=== PATIENT | female | born 2000 | race Hispanic/Latino ===

== ENCOUNTER 2022-09-12 18:01 | Emergency (ER) | payer OTHER ==
--- OUTSIDE RECORDS SUMMARY | 2022-09-12 18:05 | XMS REPORT | Continuity of Care Document ---
:[address] [facility] t Address [address] [place] [place] [address] Care Team Providers Name Role Phone Pcp, Patient Does Not Have A Primary Care Physician [id number] DELORIS JOHNSON Attending Clinician Unavailable YANG NELSON Attending Clinician Unavailable JYOTI SINGH Attending Clinician Unavailable GARY PULIDO Attending Clinician Unavailable LANDY LUA Attending Clinician Unavailable RITA SHERMAN Attending Clinician Unavailable FIDELINA ODELL Attending Clinician Unavailable Fidelina Odell PA-C Attending Clinician Doctor Unassigned, [place] Attending Clinician Unavailable SHAVONNE HUERTA Attending Clinician Unavailable Shoaib Schneider Unavailable [phone] Angelika Hui Unavailable [phone] Regina Alexander Unavailable [phone] Payers Payer Name Policy Type Policy Number Effective Date Expiration Date S ourfadi [place] [id number] 2021 2021 WOMEN 00:00:00 00:00:00 [place] [id number] FORMERLY [facility] [id number] 2022 [place] STAR 00:00:00 [facility] MEDICAID STAR [id number] 2022 00:00:00 Problems Condition Condition Condition Status Onset Resolution Last Treating Co mments Source Name Details Category Date Date Treatment Clinician Date Screening Condition Active 2021-01-19 Bassem Schneider visit for 01-19 14:16:49 Shoaib Commu ni sexually 00:00: ty trans dis 00 Health Family Condition Active 2021-01-19 Jennie Dina paris history of 01-19 14:16:49 Shoaib Comm uni thyroid 00:00: ty disease 00 Health Contracept Condition Active 2021-01-19 Bassem Schneider ion 01-19 14:16:49 Shoaib Martinez counseling 00:00: ty 00 Health Annual Condition Active 2021-01-19 Jennie Dina paris physical 01-19 14:16:49 Shoaib Denny i examinatio 00:00: ty n 00 Health Nausea and Condition Active 2018-12-12 Bassem Hui vomiting 12-04 14:43:32 Angelika Co mmuni in 00:00: ty 00 Health Less than Condition Active 2018-12-12 Bassem Hui 8 weeks 4-17 14:43:32 Angelika Com johanna gestation 00:00: ty of 00 Health Encounter Condition Active 2018-11-21 Bassem Alexander for 11-21 16:37:39 Regina Martinez supervisio 00:00: ty n of 00 Health normal first , first trimester No known No known Disease Unive rs active active ity of problems problems [facility] History of Past Illness Condition Condition Condition Status Onset Resolution Last Treating Co mments Source Name Details Category Date Date Treatment Clinician Date Less than Condition Inactiv 2018-12-04 2018-12-04 Bassem Hui 8 weeks e -04 00:00:00 16:09:45 Angelika C ommuni gestation 00:00: ty of 00 Health Allergies, Adverse Reactions, Alerts Allergy Allergy Status Severity Reaction(s) Onset Inactive Treating Comm ents Source Name Type Date Date Clinician NO KNOWN Drug Active Univers ALLERGIE Class ity of S [facility] Social History Social Habit Start Date Stop Date Quantity Comments Source Exposure to 2022-06-18 2022-06-28 Not sure University of SARS-CoV-2 (event) 00:00:00 10:51:00 [facility] Tobacco use and 2022-05-30 2022-05-30 Smokeless tobacco Un iversity of exposure 00:00:00 00:00:00 non-user [facility] albumin, serum 2021-01-19 2021-01-19 4.3 g/dL [facility] 14:22:00 14:22:00 Health sexual orientation 2021-01-19 2021-01-19 heterosexual [facility] 13:16:22 13:16:22 Health PHQ2 Questionairre 2021-01-19 2021-01-19 [facility] Score 13:16:22 13:16:22 Health is there any chance 2021-01-19 2021-01-19 No [facility] that you could be 13:16:22 13:16:22 Health ? if the patient is 2021-01-19 2021-01-19 No [facility] using/has used a 13:16:22 13:16:22 Health vaping item, Current, Former, Never Used, Not asked drug use 2021-01-19 2021-01-19 Previously [facility] 13:16:22 13:16:22 Health alcohol use 2021-01-19 2021-01-19 Previously [facility] 13:16:22 13:16:22 Health social history 2021-01-19 2021-01-19 reviewed today [facility] reviewed E&M 13:16:22 13:16:22 Health social history E&M 2021-01-19 2021-01-19 No significant [place] [facility] [facility] 13:16:22 13:16:22 history. Health Have you traveled to 2018-12-12 2018-12-12 No [facility] any zika virus 13:18:04 13:18:04 Health infected areas? time of call 2018-11-29 2018-11-29 11/29/2018 1:31 PM [facility] 13:31:02 13:31:02 Health cat exposure during 2018-11-21 2018-11-21 no [facility] 14:27:05 14:27:05 Health number of sexual 2018-11-21 2018-11-21 [facility] partners in last 14:27:05 14:27:05 Health year currently in sexual 2018-11-21 2018-11-21 only one partner [facility] relationship with 14:27:05 14:27:05 at a time Health total number of 2018-11-21 2018-11-21 [facility] lifetime sexual 14:27:05 14:27:05 Health partners Sex Assigned At 2000 2000 Universit y of 00:00:00 00:00:00 [facility] Smoking Status Start Date Stop Date Source Tobacco [facility] Never [facility] tobacco [facility] Medications Ordered Filled Start Stop Current Ordering Indication Dosage Frequency Signature Comments Components Source Medication Medication Date Date Medication? Clinician (SIG) Name Name RODERICK 2021-08 Yes [id number] 1{tbl} Take 1 Univers 1 mg-20 mcg 1-09 tablet by ity of (21)/75 mg 00:00: mouth in Lak[place] as (7) tablet 00 the Medical morning. Branch LOESTRIN 2021-08 Yes [id number] 1{tbl} Take 1 Univers 1 mg-20 mcg 1-09 tablet by ity of (21)/75 mg 00:00: mouth in Lakhwinder as (7) tablet 00 the Medical morning. Branch LOESTRIN 2021-08 Yes [id number] 1{tbl} Take 1 Univers 1 mg-20 mcg 1-09 tablet by ity of (21)/75 mg 00:00: mouth in Lakhw[place] as (7) tablet 00 the Medical morning. Branch TAKE 1 2021-08 No CAPSULE BY 0-31 MOUTH THREE 00:00: TIMES DAILY 00 TAKE 1 2021-08 No TABLET BY 0-28 MOUTH EVERY 00:00: 6 HOURS 00 NEEDED FOR MODERATE PAIN azithromyci 2021-08- No [id number] 1000mg Take 2 Univers n 500 mg 0-13 10-15 tablets by ity of tablet 00:00: 04:59 mouth in [place] 00 :00 the Medical morning Branch for 1 day. No known 2021-08 No No known Unive rs medications 0-11 medication it y of 16:17: s [address] No known 2021-08 No No known Unive rs medications 0-11 medication it y of 16:17: s [address] SPRINTEC 28 Yes Shoaib 1 1xD 1 tablet L egacy (NORGESTIMA -02 Jennie by mouth Co mmuni TE-ETH 00:00: daily ty ESTRADIOL) 00 Health 0.25-35 MG-MCG TABS (PROMETHAZI 2020- No 1 6xD 1 tab by L egacy NE HCL) 25 4-17 06-02 mouth Communi MG TABS 00:00: 00:00 every 4-6 ty 00 :00 hrs as Health needed for nausea SELECT-OB+D 2020- No 1 tablet L egacy CHAVARRIA 4-04 -02 and 1 gel Communi ( 00:00: 00:00 capsule by t y VIT-FEPOLY- 00 :00 mouth Health FA-DHA) daily 29-1 & 250 MG Immunizations Ordered Immunization Filled Immunization Date Status Commen ts Source Name Name Klever 2022-06-29 Completed Meningococcal 00:00:00 (groups a,c,y,w) Pneumococcal 2022-06-29 Completed conjugate P 00:00:00 Meningococcal B, OMV 2021-12-22 Completed Univ ersity of 00:00:00 [facility] Meningococcal B, OMV 2021-12-22 Completed Univ ersity of 00:00:00 [facility] Meningococcal B, OMV 2021-12-22 Completed Univ ersity of 00:00:00 [facility] Meningococcal B, OMV 2021-12-22 Completed Univ ersity of 00:00:00 [facility] Meningococcal B, OMV 2021-12-22 Completed Univ ersity of 00:00:00 [facility] Meningococcal B, OMV 2021-12-22 Completed Univ ersity of 00:00:00 [facility] influenza, live, 2014-10-05 Completed intrana 00:00:00 HPV, quadrivalent 2014-10-05 Completed 00:00:00 Influenza, seasonal, 2011-09-11 Completed inj 00:00:00 HPV, quadrivalent 2011-09-11 Completed 00:00:00 meningococcal MCV4P 2011-09-11 Completed 00:00:00 Tdap 2011-09-11 Completed 00:00:00 varicella 2010-01-18 Completed 00:00:00 IPV 2010-01-18 Completed 00:00:00 Hep A, unspecified 2006-01-01 Completed formu 00:00:00 pneumococcal 2005-01-17 Completed conjugate P 00:00:00 MMR 2005-01-17 Completed 00:00:00 DTaP, unspecified 2005-01-17 Completed formul 00:00:00 Hep A, unspecified 2005-01-17 Completed formu 00:00:00 varicella 2002-02-04 Completed 00:00:00 Hib (PRP-T) 2002-02-04 Completed 00:00:00 DTaP, unspecified 2002-02-04 Completed formul 00:00:00 MMR 2001-09-23 Completed 00:00:00 IPV 2001-09-23 Completed 00:00:00 Hib (PRP-T) 2001-07-30 Completed 00:00:00 DTaP, unspecified 2001-07-30 Completed formul 00:00:00 IPV 2001-05-08 Completed 00:00:00 Hib (PRP-T) 2001-05-08 Completed 00:00:00 Hep B, adolescent or 2001-05-08 Completed ped 00:00:00 DTaP, unspecified 2001-05-08 Completed formul 00:00:00 Hep B, adolescent or 2000 Completed ped 00:00:00 IPV 2000 Completed 00:00:00 Hib (PRP-T) 2000 Completed 00:00:00 DTaP, unspecified 2000 Completed formul 00:00:00 Hep B, unspecified 2000 Completed formu 00:00:00 Hep B, adolescent or 2000 Completed ped 00:00:00 Vital Signs Vital Name Observation Time Observation Value Comments Source Systolic blood 2022-06-28 17:07:00 111 mm[Hg] Univer sity of pressure [facility] Diastolic blood 2022-06-28 17:07:00 74 mm[Hg] Unive rsity of pressure [facility] Heart rate 2022-06-28 17:07:00 74 /min [facility] Body temperature 2022-06-28 17:07:00 36.72 Judy [facility] Respiratory rate 2022-06-28 17:07:00 18 /min [facility] Body height 2022-06-28 17:07:00 157.5 cm [facility] Body weight 2022-06-28 17:07:00 53.071 kg [facility] BMI 2022-06-28 17:07:00 21.40 kg/m2 Universi ty [facility] Systolic blood 2022-05-30 18:50:00 109 mm[Hg] Univer sity of pressure [facility] Diastolic blood 2022-05-30 18:50:00 74 mm[Hg] Unive rsity of pressure [facility] Heart rate 2022-05-30 18:50:00 84 /min Universi ty [facility] Body temperature 2022-05-30 18:50:00 36.67 Judy Univ ersity of [facility] Respiratory rate 2022-05-30 18:50:00 18 /min Univ ersity of [facility] Body height 2022-05-30 18:50:00 157.5 cm Universi ty [facility] Body weight 2022-05-30 18:50:00 52.164 kg Universi ty [facility] BMI 2022-05-30 18:50:00 21.03 kg/m2 Universi ty [facility] BP Systolic 2022-06-29 11:04:00 118 mm[Hg] BP Diastolic 2022-06-29 11:04:00 81 mm[Hg] Weight Measured 2022-06-29 11:04:00 117.40 pounds Height Measured 2022-06-29 11:04:00 64.00 inches Body Temperature 2022-06-29 11:04:00 97.00 degrees Heart Rate 2022-06-29 11:04:00 71.00 /min Respiratory Rate 2022-06-29 11:04:00 18.00 /min BP Systolic 2022-06-22 10:05:00 125 mm[Hg] BP Diastolic 2022-06-22 10:05:00 83 mm[Hg] Weight Measured 2022-06-22 10:05:00 115.40 pounds Height Measured 2022-06-22 10:05:00 64.00 inches Body Temperature 2022-06-22 10:05:00 98.20 degrees Heart Rate 2022-06-22 10:05:00 80.00 /min Respiratory Rate 2022-06-22 10:05:00 18.00 /min height in 2021-01-19 13:16:22 157.48 cm [facility] centimeters E& Health weight E&M 2021-01-19 13:16:22 112.80 [lb_av] [facility] weight in kilograms 2021-01-19 13:16:22 51.27 kg L [facility] E& Health temperature E&M 2021-01-19 13:16:22 98.1 [degF] [facility] Health pulse rate 2021-01-19 13:16:22 97 /min [facility] oxygen saturation, 2021-01-19 13:16:22 98 /min [facility] oximetry Health blood pressure, 2021-01-19 13:16:22 68 mm[Hg] [facility] diastolic [facility] blood pressure, 2021-01-19 13:16:22 106 mm[Hg] [facility] systolic Health temperature site 2021-01-19 13:16:22 oral [facility]ega [facility] Health blood pressure, 2018-12-12 13:18:04 73 mm[Hg] [facility] diastolic Health blood pressure, 2018-12-12 13:18:04 125 mm[Hg] [facility] systolic Health pulse rate 2018-12-12 13:18:04 89 /min [facility] temperature E&M 2018-12-12 13:18:04 98.0 [degF] [facility] 2018-12-12 13:18:04 107.0 [lb_av] [facility] temperature site 2018-12-12 13:18:04 oral [facility]ega [facility] Health height E&M 2018-12-12 13:18:04 62.1 [in_i] [facility], 2018-12-04 15:52:20 70 mm[Hg] [facility] diastolic Health blood pressure, 2018-12-04 15:52:20 106 mm[Hg] [facility] systolic Health pulse rate 2018-12-04 15:52:20 72 /min [facility] 2018-12-04 15:52:20 oral Lega [facility] Health temperature E&M 2018-12-04 15:52:20 97.9 [degF] Legac y [facility] Health weight E&M 2018-12-04 15:52:20 107.2 [lb_av] [facility] Health height E&M 2018-12-04 15:52:20 62.1 [in_i] [facility] temperature [facility] 2018-11-21 14:27:05 oral [facility] blood pressure, 2018-11-21 14:27:05 69 mm[Hg] [facility] diastolic Health blood pressure, 2018-11-21 14:27:05 106 mm[Hg] [facility] pulse rate 2018-11-21 14:27:05 97 /min [facility] temperature E&M 2018-11-21 14:27:05 98.1 [degF] [facility] 2018-11-21 14:27:05 62.1 [in_i] [facility] weight E&M 2018-11-21 14:27:05 108.8 [lb_av] [facility] Procedures Procedure Date / Time Performing Clinician Source Performed CONSENT FOR 2022-06-28 06:01:00 Doctor Unassigned, No [facility] CONTRACEPTION [facility] POCT TEST 2022-06-28 00:00:00 Fidelina Odell [facility] NOTICE OF PRIVACY 2022-05-30 18:23:05 Doctor Unassigned, No [facility] PRACTICES Name [facility] CONSENT TO CONTACT FOR 2022-05-30 18:22:40 Doctor Unassigned, No [facility] VOLUNTARY RESEARCH Name [facility] CONSENT/REFUSAL FOR 2022-05-30 18:22:14 Doctor Unassigned, No [facility] DIAGNOSIS AND TREATMENT [facility] ASSIGNMENT OF BENEFITS 2022-05-30 18:21:40 Doctor Unassigned, No [facility] POCT TEST 2022-05-30 00:00:00 Fidelina Odell [facility] Most recent diastolic 2021-01-19 14:11:41 Shoaib Schneider [facility] blood pressure less than Health 80 mm Hg (HTN, CKD, CAD) (DM) Most recent systolic 2021-01-19 14:11:41 Jennie, [facility] blood pressure less than Health 130 mm Hg (DM), (HTN, CKD, CAD) Urine - In 2021-01-19 13:32:15 [facility]ound, transvaginal 2018-12-12 14:43:38 Sallie Coronado [facility] Venipuncture 2018-11-21 16:26:27 Regina Alexander [facility] Plan of Care Planned Activity Planned Date Details Comments Source Goal Plan of Care Note [code = 88106-9] Goal Plan of Care Note [code = 25822-6] Goal Plan of Care Note [code = 53642-9] Goal Plan of Care Note [code = 55914-8] Goal Plan of Care Note [code = 40365-8] Goal Plan of Care Note [code = 18419-3] Goal Plan of Care Note [code = 64400-4] Goal Plan of Care Note [code = 81212-4] Encounters Start End Encounter Admission Attending Care Care Encounter Source Date/Time Date/Time Type Type Clinicians Facility Department ID 2022-08-01 Outpatient [facility] [id number] [place] 09:14:14 [id number] [facility] 2022-06-21 Outpatient [facility] [id number] [place] 11:25:34 [id number] Health 2022-06-05 Outpatient [facility] [id number] [place] 10:19:29 [id number] [facility] 2022-06-01 Outpatient [facility] [id number] [place] 06:09:16 [id number] 2022-04-27 Outpatient [facility] [id number] [place] 08:19:58 [id number] [facility] 2022-04-26 Outpatient [facility] [id number] [place] 15:52:50 [id number] [facility] 2022-03-30 Outpatient [facility] [id number] [place] 10:18:46 [id number] Health 2022-03-28 Outpatient [facility] [id number] [place] 08:47:50 [id number] [facility] 2022-03-15 Outpatient [facility] [id number] [place] 02:55:52 [id number] [facility] 2022-03-14 Outpatient [facility] [id number] [place] 08:42:13 [id number] [facility] 2022-03-11 Outpatient [facility] [id number] [place] 02:52:11 [id number] [facility] 2022-02-28 Outpatient ACHOR, [facility] [id number] [place] 01:04:08 DELORIS [id number] [facility] 2022-02-27 Outpatient OMAR, [facility] [id number] [place] 01:03:46 YANG [id number] [facility] 2022-02-10 Outpatient [facility] [id number] [place] 01:06:01 [id number] [facility] 2022-02-06 Outpatient SAMANTHA, [facility] [id number] [place] 11:19:04 JYOTI [id number] [facility] 2022-02-03 Outpatient [facility] [id number] [place] 09:38:24 [id number] [facility] 2022-02-02 Outpatient [facility] [id number] [place] 06:59:21 [id number] [facility] 2022-01-30 Outpatient [facility] [id number] [place] 14:34:07 [id number] [facility] 2022-01-26 Outpatient LADOR, RAN [facility] [id number] [place] 03:12:09 [id number] [facility] 2022-01-25 Outpatient [facility] [id number] [place] 08:22:20 [id number] [facility] 2022-01-24 Outpatient LADOR, RAN [facility] [id number] [place] 07:33:07 [id number] [facility] 2022-01-23 Outpatient [facility] [id number] [place] 17:42:57 [id number] [facility] 2022-01-20 Outpatient LADOR, RAN [facility] [id number] [place] 03:16:32 [id number] [facility] 2022-01-19 Outpatient LADOR, RAN [facility] [id number] [place] 14:07:11 [id number] [facility] 2022-01-18 Outpatient [facility] [id number] [place] 14:03:18 [id number] [facility] 2022-01-17 Outpatient LUA, [facility] [id number] [place] 11:54:35 LANDY [id number] [facility] 2022-01-13 Outpatient SAMANTHA, [facility] [id number] [place] 03:14:06 JYOTI [id number] [facility] 2022-01-06 Outpatient [facility] [id number] [place] 01:06:06 [id number] [facility] 2022-01-05 Outpatient AKUTAN, [facility] [id number] [place] 10:09:20 RITA [id number] [facility] 2022-01-02 Outpatient SINGH, [facility] [id number] [place] 11:12:16 JYOTI [id number] [facility] 2021-12-29 Outpatient [facility] [id number] [place] 09:19:54 [id number] [facility] 2021-12-27 Outpatient [facility] [id number] [place] 15:41:37 [id number] [facility] 2021-12-26 Outpatient AKUTAN, [facility] [id number] [place] 11:57:16 RITA [id number] [facility] 2021-12-23 Outpatient AKUTAN, [facility] [id number] [place] 09:08:31 RITA [id number] [facility] 2021-12-21 Outpatient [facility] [id number] [place] 08:27:14 [id number] [facility] 2021-12-14 Outpatient [facility] [id number] [place] 07:12:[id number] [place] [address] 2021-06-05 Outpatient [facility] [id number] Legacy 12:07:22 [id number] [facility] 2021-06-05 Outpatient [facility] [id number] Legacy 11:59:25 [id number] [facility] 2021-06-05 Outpatient [facility] [id number] Legacy 10:39:45 [id number] [facility] 2022-06-29 2022-06-29 Outpatient [facility] [id number] Daryl 11:00:36 11:00:36 [id number] F Slim 2022-06-29 2022-06-29 Outpatient [id number] [id number] 00:00:00 00:00:00 Visit [id number] 2022-06-28 2022-06-28 Outpatient Anamaria ODELL [facility] [id number] Univers 10:45:00 11:20:54 FIDELINA ity [facility] 2022-06-28 2022-06-28 [facility] [id number] Univers 10:45:00 11:20:54 Visit Fidelina METCALF [id number] i ty [id number] [id number] Mn dical NAL [address] [place] [address] 2022-06-28 2022-06-28 Orders Doctor MICKIE [id number] Univers 00:00:00 00:00:00 Only Unassigned, CHAD [id number] ity of [place] [facility] [id number] Lakhwinder as [phone] [address] 2022-06-01 2022-06-01 [facility] [id number] Univers 00:00:00 00:00:00 Management Fidelina CRYSTALJEANETTE [id number] it[place] [id number] Mn dical NAL [address] [place] [address] 2022-05-30 2022-05-30 [facility] [id number] Univers 13:30:00 14:33:37 FIDELINA phelps [facility] 2022-05-30 2022-05-30 Office [facility] [id number] Univers 13:30:00 14:33:37 Visit Fidelina ROJASJEANETTE [id number] i ty [id number] [id number] Mn dical NAL [address] [place] [address] 2022-05-30 2022-05-30 Orders Doctor MICKIE [id number] Univers 00:00:00 00:00:00 Only Unassigned, CHAD [id number] ity of [place] [facility] [id number] Lakhwinder as [id number] [address] 2022-04-28 2022-04-28 Outpatient GARY PULIDO [facility] [id number] [place] 09:00:00 09:00:00 Health 2022-04-03 2022-04-03 Outpatient SINGH, [facility] [id number] [place] 11:45:00 11:45:00 JYOTI Health 2022-04-03 2022-04-03 Outpatient [facility] [id number] [place] 11:30:00 11:30:00 Health 2022-01-27 2022-01-27 Outpatient [facility] [id number] [place] 09:00:00 09:00:00 Health 2021-12-19 2021-12-19 Outpatient LUA, [facility] [id number] [place] 12:00:00 12:00:00 LANDY Health 2021-12-15 2021-12-15 Outpatient PUZIO, [facility] [id number] [place] 07:30:00 07:30:00 SHAVONNE Healt h Results Test Description Test Time Test Comments Results Result Comments Source RPR 2022-07-04 10:10:45 Test Item Value Reference Range Interpretation Comme nts RPR RESULT (test TEST NOT PERFORMED NON-REACTIVE Unabl e to perform testing, code = 3501) specimen not re ceived.Charges adjusted as merle licable. RPR TITER (test TEST NOT PERFORMED NOT INDIC. code = 3500) TITER HIV 1/2 4TH GEN, RFLX [id number] 10:10:18 Test Item Value Reference Range Interpretation Comments HIV 1/2 4TH GEN, TEST NOT PERFORMED NON-REACTIVE Unabl e to perform RFLX CONF (test testing, [employer] code = 3514) not received.Charge s adjusted as applicable. VAGINAL PATHOGENS DNA [id number] 08:35:38 Test Item Value Reference Range Interpretation Comments KIRSTIE SPECIES TEST NOT PERFORMED NEGATIVE UNABL E TO (test code = 66610) PERFORM TESTING DUE TO RECEIPT OF IMPROPER SPECIMEN. CHARG ES DELETED. G. VAGINALIS (test TEST NOT PERFORMED NEGATIVE UN ABLE TO code = ) PERFORM TESTIN G DUE TO RECEIPT OF IMPROPER SPECIMEN. CHARG ES DELETED. T. VAGINALIS (test TEST NOT PERFORMED NEGATIVE U NABLE TO code = ) PERFORM TESTIN G DUE TO RECEIPT OF IMPROPER SPECIMEN. CHARG ES DELETED. CT/NG, NAAT, [id number] 22:42:50 Test Item Value Reference Range Interpretation Comments GONORRHEA, NAAT NEGATIVE NEGATIVE Note: Testi ng is performed (test code = with Teodoro YELENA S 6800/8800 21691) method using re al-time polymerase kita n reaction (PCR) method. CHLAMYDIA, NAAT NEGATIVE NEGATIVE Note: Testi ng is performed (test code = with Teodoro YELENA S 6800/8800 19889) method using re al-time polymerase kita n reaction (PCR) method. U NLESS OTHERWISE INDIC ATED, ALL TESTING PERFORM [facility] [place]. [address] [place] [address] LABORATORY DIRE CTOR: Chriss STOLL. CLIA NUMBER [id number] CAP ACCREDITATION N O. [id number] POCT [id number] 17:05:00 Test Item Value Reference Range Interpretation Comments POCT PREG (test code = 1605) Negative On board controls acceptable with C Yes Line (test code = 3574) POCT PREG LOT # (test code = 3575) POCT PREG TEST DATE (test code = 3576) [id number] 17:05:00 Test Item Value Reference Range Interpretation Comments POCT PREG (test code = 1605) Negative On board controls acceptable with C Yes Line (test code = 3574) POCT PREG LOT # (test code = 3575) POCT PREG TEST DATE (test code = 3576) [facility] [id number] 19:33:00 Test Item Value Reference Range Interpretation Comments POCT PREG (test code = 1605) Negative On board controls acceptable with C Yes Line (test code = 3574) POCT PREG LOT # (test code = 3575) POCT PREG TEST DATE (test code = 3576) [facility] [id number] 19:33:00 Test Item Value Reference Range Interpretation Comments POCT PREG (test code = 1605) Negative On board controls acceptable with C Yes Line (test code = 3574) POCT PREG LOT # (test code = 3575) POCT PREG TEST DATE (test code = 3576) [facility] 2022-05-30 18:22:40 Test Item Value Reference Range Interpretation Comments Consent To Contact For Voluntary Yes Research (test code = 4947) [facility] CenterNeisseria gonorrhoeae DNA [id number] 14:27:00 Test Item Value Reference Range Interpretation Comments Neisseria gonorrhoeae DNA probe Negative Negative (test code = 53295-0) [facility] [id number] 14:27:00 Test Item Value Reference Range Interpretation Comments chlamydia DNA probe (test code = Negative Negative 48551-1) [facility]althyroxine, serum, [id number] 14:22:00 Test Item Value Reference Range Interpretation Comments thyroxine, serum, free (test code 1.30 ng/dL 0.82-1.77 = 3024-7) [facility] Hospitalthyroid stimulating hormone, [id number] 14:22:00 Test Item Value Reference Range Interpretation Comments thyroid stimulating hormone, 0.323 u[IU]/mL 0.450-4.500 L serum (test code = 3016-3) [facility]HIV-CMIA (Chemiluminescent Microparticle Immuno Assay) 2021-01-19 14:22:00 Test Item Value Reference Range Interpretation Comments HIV-CMIA (Chemiluminescent Non Reactive Non Reactive Microparticle Immuno Assay) (test code = 808439) [facility]hem[facility] A1C, blood, as % of total [id number] 14:22:00 Test Item Value Reference Range Interpretation Comments hemoglobin A1C, blood, as % of total 5.1 % 4.8-5.6 hemoglobin (test code = 4548-4) [facility] HospitalLDL cholesterol, [id number] 14:22:00 Test Item Value Reference Range Interpretation Comments LDL cholesterol, serum (test code = 60 mg/dL 0-99 2088-1) [facility]very low density [id number] 14:22:00 Test Item Value Reference Range Interpretation Comments very low density lipoproteins (test 13 mg/dL 5-40 code = 2090-7) [facility] HospitalHDL cholesterol, [id number] 14:22:00 Test Item Value Reference Range Interpretation Comments HDL cholesterol, serum (test code = 66 mg/dL >39 5-9) [facility]triglyceride, serum, [id number] 14:22:00 Test Item Value Reference Range Interpretation Comments triglyceride, serum, fasting (test 60 mg/dL 0-149 code = 2571-8) [facility]cholesterol, [id number] 14:22:00 Test Item Value Reference Range Interpretation Comments cholesterol, serum (test code = 139 mg/dL 693-890 0845-3) [facility] Hospitalalanine aminotransferase (SGPT), [id number] 14:22:00 Test Item Value Reference Range Interpretation Comments alanine aminotransferase (SGPT), serum 23 1/L 0-32 (test code = 1742-6) [facility] Hospitalaspartate aminotransferase (SGOT), [id number] 14:22:00 Test Item Value Reference Range Interpretation Comments aspartate aminotransferase (SGOT), 22 1/L 0-40 serum (test code = 1920-8) [facility] Hospitalalkaline phosphatase, [id number] 14:22:00 Test Item Value Reference Range Interpretation Comments alkaline phosphatase, serum (test code 67 1/L 45-106 = 1783-0) [facility]bilirubin, serum, [id number] 14:22:00 Test Item Value Reference Range Interpretation Comments bilirubin, serum, total (test code 0.3 mg/dL 0.0-1.2 = 1975-2) [facility]albumin/globulin ratio, [id number] 14:22:00 Test Item Value Reference Range Interpretation Comments albumin/globulin ratio, 1.7 (unknown unit) 1.2-2.2 serum (test code = 1759-0) [facility] Healthglobulin, [id number] 14:22:00 Test Item Value Reference Range Interpretation Comments globulin, serum (test code 2.6 (unknown unit) 1.5-4.5 = 2336-6) [facility]albumin, [id number] 14:22:00 Test Item Value Reference Range Interpretation Comments albumin, serum (test code = 1751-7) 4.3 g/dL 3.9-5.0 [facility]protein, total, [id number] 14:22:00 Test Item Value Reference Range Interpretation Comments protein, total, serum (test code = 6.9 g/dL 6.0-8.5 2885-2) [facility] Healthcalcium, [id number] 14:22:00 Test Item Value Reference Range Interpretation Comments calcium, serum (test code = 1999-8) 9.2 mg/dL 8.7-10.2 [facility]carbon dioxide, venous [id number] 14:22:00 Test Item Value Reference Range Interpretation Comments carbon dioxide, venous blood (test 21 mmol/L 20-29 code = 2027-1) [facility] Healthchloride, [id number] 14:22:00 Test Item Value Reference Range Interpretation Comments chloride, serum (test code = 104 mmol/L 96-106 2075-0) [facility]potassium, [id number] 14:22:00 Test Item Value Reference Range Interpretation Comments potassium, serum (test code = 4.5 mmol/L 3.5-5.2 2823-3) [facility] Hospitalsodium, [id number] 14:22:00 Test Item Value Reference Range Interpretation Comments sodium, serum (test code = 2951-2) 141 mmol/L 134-144 [facility] Hospitalurea nitrogen/creatinine ratio, [id number] 14:22:00 Test Item Value Reference Range Interpretation Comments urea nitrogen/creatinine 11 (unknown unit) 9-23 ratio, serum (test code = 3097-3) [facility] HealtheGFR if [id number] 14:22:00 Test Item Value Reference Range Interpretation Comments eGFR if 114 mL/min/{1.73 m2} >59 (test code = 03977-2) [facility] HospitalEstimated Glomerular Filtration Rate (calc)2021-01-19 14:22:00 Test Item Value Reference Range Interpretation Comments Estimated Glomerular 99 mL/min/{1.73 m2} >59 Filtration Rate (calc) (test code = 54494-5) [facility] Hospitalcreatinine, [id number] 14:22:00 Test Item Value Reference Range Interpretation Comments creatinine, serum (test code = 0.85 mg/dL 0.57-1.00 2160-0) [facility] Hospitalurea nitrogen, [id number] 14:22:00 Test Item Value Reference Range Interpretation Comments urea nitrogen, blood (test code = 9 mg/dL 6-20 3094-0) [facility] Hospitalblood glucose, [id number] 14:22:00 Test Item Value Reference Range Interpretation Comments blood glucose, random (test code = 65 mg/dL 65-99 2339-0) [facility] Hospitalimmature granulocytes, percentage of total cells, blood 2021-01-19 14:22:00 Test Item Value Reference Range Interpretation Comments immature granulocytes, percentage of 0 % total cells, blood (test code = 36047-4) [facility] Healthbasophil count, [id number] 14:22:00 Test Item Value Reference Range Interpretation Comments basophil count, absolute (test 0.0 x10E3/uL 0.0-0.2 code = 96398-4) [facility] HealthEosinophil Absolute [id number] 14:22:00 Test Item Value Reference Range Interpretation Comments Eosinophil Absolute Count (test 0.1 X10E3/UL 0.0-0.4 code = 77781-6) [facility]monocyte count, blood, [id number] 14:22:00 Test Item Value Reference Range Interpretation Comments monocyte count, blood, automated 0.7 X10E3/UL 0.1-0.9 (test code = 742-7) [facility] Hospitallymphocyte count, blood, [id number] 14:22:00 Test Item Value Reference Range Interpretation Comments lymphocyte count, blood, 2.3 X10E3/UL 0.7-3.1 automated (test code = 731-0) [facility] HospitalAbsolute [id number] 14:22:00 Test Item Value Reference Range Interpretation Comments Absolute Neutrophils (test code 6.4 X10E3/UL 1.4-7.0 = 87897-9) [facility] Hospitalbasophils as percent of blood [id number] 14:22:00 Test Item Value Reference Range Interpretation Comments basophils as percent of blood 0 % leukocytes (test code = 707-0) [facility] Healtheosinophils as percent of blood [id number] 14:22:00 Test Item Value Reference Range Interpretation Comments eosinophils as percent of blood 1 % leukocytes (test code = 713-8) [facility] Healthmonocytes as percent of blood mvjzvsyvhd9842-31-46 14:22:00 Test Item Value Reference Range Interpretation Comments monocytes as percent of blood 7 % leukocytes (test code = 5905-5) [facility]allymphocytes as percent of blood [id number] 14:22:00 Test Item Value Reference Range Interpretation Comments lymphocytes as percent of blood 24 % leukocytes (test code = 736-9) [facility] Hospitalneutrophils as percent of blood [id number] 14:22:00 Test Item Value Reference Range Interpretation Comments neutrophils as percent of blood 68 % leukocytes (test code = 770-8) [facility] Hospitalplatelet [id number] 14:22:00 Test Item Value Reference Range Interpretation Comments platelet count (test code = 304 X10E3/UL 150-450 777-3) [facility] Hospitalred blood cell distribution [id number] 14:22:00 Test Item Value Reference Range Interpretation Comments red blood cell distribution width 12.7 % 11.7-15.4 (test code = 788-0) [facility] corpuscular hemoglobin concentration, [id number] 14:22:00 Test Item Value Reference Range Interpretation Comments mean corpuscular hemoglobin 32.4 G/DL 31.5-35.7 concentration, RBC (test code = 786-4) [facility] corpuscular hemoglobin, [id number] 14:22:00 Test Item Value Reference Range Interpretation Comments mean corpuscular hemoglobin, RBC 29.1 pg 26.6-33.0 (test code = 785-6) [facility] corpuscular volume, [id number] 14:22:00 Test Item Value Reference Range Interpretation Comments mean corpuscular volume, RBC (test code 90 fL 79-97 = 787-2) [facility]hematocrit, [id number] 14:22:00 Test Item Value Reference Range Interpretation Comments hematocrit, blood (test code = 4544-3) 38.6 % 34.0-46.6 [facility]hemoglobin, [id number] 14:22:00 Test Item Value Reference Range Interpretation Comments hemoglobin, blood (test code = 12.5 g/dL 11.1-15.9 718-7) [facility] Hospitalerythrocyte (RBC) [id number] 14:22:00 Test Item Value Reference Range Interpretation Comments erythrocyte (RBC) count (test 4.29 X10E6/UL 3.77-5.28 code = 789-8) [facility]leukocyte count, [id number] 14:22:00 Test Item Value Reference Range Interpretation Comments leukocyte count, blood (test 9.6 X10E3/UL 3.4-10.8 code = 6690-2) [facility] HospitalNeisseria gonorrhoeae DNA [id number] 20:49:00 Test Item Value Reference Range Interpretation Comments Neisseria gonorrhoeae DNA probe Negative Negative (test code = 42129-8) [facility]chlamydia DNA [id number] 20:49:00 Test Item Value Reference Range Interpretation Comments chlamydia DNA probe (test code = Negative Negative 35797-0) [facility] Hospitalurine [id number] 20:04:00 Test Item Value Reference Range Interpretation Comments urine culture (test code = 630-4) LESS [facility] Hospitalhepatitis B surface [id number] 16:36:00 Test Item Value Reference Range Interpretation Comments hepatitis B surface antigen (test Negative Negative code = 79) [facility] HospitalRh [id number] 16:36:00 Test Item Value Reference Range Interpretation Comments Rh antibody (test code = 256) Negative Negative [facility]HIV-CMIA (Chemiluminescent Microparticle Immuno Assay) 2018-11-21 16:36:00 Test Item Value Reference Range Interpretation Comments HIV-CMIA (Chemiluminescent Non Reactive Non Reactive Microparticle Immuno Assay) (test code = 792632) [facility] Hospitalrapid plasma reagin antibody, [id number] 16:36:00 Test Item Value Reference Range Interpretation Comments rapid plasma reagin antibody, Non Reactive Non Reactive serum (test code = 5291-0) [facility] HospitalRh [id number] 16:36:00 Test Item Value Reference Range Interpretation Comments Rh antigen (test code = 255) Positive [facility] HospitalABO blood [id number] 16:36:00 Test Item Value Reference Range Interpretation Comments ABO blood group (test code = 116) O [facility] Hospitalimmature granulocytes, percentage of total cells, blood 2018-11-21 16:36:00 Test Item Value Reference Range Interpretation Comments immature granulocytes, percentage of 0 % total cells, blood (test code = 92228-8) [facility]basophil count, [id number] 16:36:00 Test Item Value Reference Range Interpretation Comments basophil count, absolute (test 0.0 x10E3/uL 0.0-0.2 code = 23231-3) [facility] HealthEosinophil Absolute [id number] 16:36:00 Test Item Value Reference Range Interpretation Comments Eosinophil Absolute Count (test 0.0 X10E3/UL 0.0-0.4 code = 56576-7) [facility] Healthmonocyte count, blood, [id number] 16:36:00 Test Item Value Reference Range Interpretation Comments monocyte count, blood, automated 0.5 X10E3/UL 0.1-0.9 (test code = 742-7) [facility]allymphocyte count, blood, [id number] 16:36:00 Test Item Value Reference Range Interpretation Comments lymphocyte count, blood, 2.0 X10E3/UL 0.7-3.1 automated (test code = 731-0) [facility] HealthAbsolute Bivzttuvlxl2734-07-89 16:36:00 Test Item Value Reference Range Interpretation Comments Absolute Neutrophils (test code 3.4 X10E3/UL 1.4-7.0 = 92386-5) [facility]basophils as percent of blood ikkygpcehi0760-69-44 16:36:00 Test Item Value Reference Range Interpretation Comments basophils as percent of blood 0 % leukocytes (test code = 707-0) [facility] Healtheosinophils as percent of blood [id number] 16:36:00 Test Item Value Reference Range Interpretation Comments eosinophils as percent of blood 1 % leukocytes (test code = 713-8) [facility] Healthmonocytes as percent of blood [id number] 16:36:00 Test Item Value Reference Range Interpretation Comments monocytes as percent of blood 9 % leukocytes (test code = 5905-5) [facility]allymphocytes as percent of blood pllhrxiigs2240-17-71 16:36:00 Test Item Value Reference Range Interpretation Comments lymphocytes as percent of blood 33 % leukocytes (test code = 736-9) [facility]neutrophils as percent of blood [id number] 16:36:00 Test Item Value Reference Range Interpretation Comments neutrophils as percent of blood 57 % leukocytes (test code = 770-8) [facility] Hospitalplatelet [id number] 16:36:00 Test Item Value Reference Range Interpretation Comments platelet count (test code = 280 X10E3/UL 150-379 777-3) [facility] Hospitalred blood cell distribution [id number] 16:36:00 Test Item Value Reference Range Interpretation Comments red blood cell distribution width 13.9 % 12.3-15.4 (test code = 788-0) [facility] corpuscular hemoglobin concentration, [id number] 16:36:00 Test Item Value Reference Range Interpretation Comments mean corpuscular hemoglobin 33.2 G/DL 31.5-35.7 concentration, RBC (test code = 786-4) [facility] corpuscular hemoglobin, [id number] 16:36:00 Test Item Value Reference Range Interpretation Comments mean corpuscular hemoglobin, RBC 29.8 pg 26.6-33.0 (test code = 785-6) [facility] corpuscular volume, [id number] 16:36:00 Test Item Value Reference Range Interpretation Comments mean corpuscular volume, RBC (test code 90 fL 79-97 = 787-2) [facility]hematocrit, [id number] 16:36:00 Test Item Value Reference Range Interpretation Comments hematocrit, blood (test code = 4544-3) 37.7 % 34.0-46.6 [facility]hemoglobin, [id number] 16:36:00 Test Item Value Reference Range Interpretation Comments hemoglobin, blood (test code = 12.5 g/dL 11.1-15.9 718-7) [facility] Hospitalerythrocyte (RBC) [id number] 16:36:00 Test Item Value Reference Range Interpretation Comments erythrocyte (RBC) count (test 4.20 X10E6/UL 3.77-5.28 code = 789-8) [facility] Hospitalleukocyte count, [id number] 16:36:00 Test Item Value Reference Range Interpretation Comments leukocyte count, blood (test 6.0 X10E3/UL 3.4-10.8 code = 6690-2) [facility] HospitalHerpes Simplex Virus [id number] 14:27:05 Test Item Value Reference Range Interpretation Comments Herpes Simplex Virus Genital (test code no = 4258) [facility] Hospitalbeta HCG, urine, kfmtpqomiropffgd8871-57-97 13:27:35 Test Item Value Reference Range Interpretation Comments beta HCG, urine, semiquantitative positive (test code = 2106-3) [facility]
--- NOTE | 2022-09-12 18:54 | RAD REPORT ---
EXAM DESCRIPTION: RADNasal Bones09/12/2022 6:44 pm CLINICAL HISTORY: Nasal pain status post injury FINDINGS: A minimally displaced comminuted nasal bone fracture
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
[2022-09-12] MEDS ORDERED: ACETAMINOPHEN 325 MG TABLET ONE (20:45)
[2022-09-12 21:09] VITALS: BP 125/88; TEMP 98.8; O2SAT 100
== END 2022-09-12 20:52 | disposition home or self-care (01) ==
LOC: ER 18:01
DX: S02.2XXA Fracture of nasal bones, initial encounter for closed fracture (principal)
CPT/HCPCS: 70160

== ENCOUNTER 2022-09-21 06:42 | Day surgery (SDC) | payer OTHER ==
[2022-09-21] MEDS ORDERED: CEFAZOLIN SODIUM 1 GM/VIAL ONE (07:05)
[2022-09-21] MEDS ORDERED: LIDOCAINE 1% W/EPI 1:100,000 50 ML MDV ONE (07:05)
[2022-09-21] MEDS ORDERED: BACITRACIN OINTMENT 14 GM TUBE TOP ONE (07:05)
[2022-09-21] MEDS ORDERED: OXYMETAZOLINE HCL 0.05% 15ML NAS ONE (07:05)
[2022-09-21] MEDS ORDERED: LIDOCAINE 2% MPF 5 ML VIAL ONE (07:06)
[2022-09-21] MEDS ORDERED: dexAMETHasone 10 MG/ML VIAL ONE (07:06)
[2022-09-21] MEDS ORDERED: MIDAZOLAM HCL 2 MG/2 ML INJ ONE (07:06)
[2022-09-21] MEDS ORDERED: KETOROLAC 30 MG/ML INJ ONE (07:06)
[2022-09-21] MEDS ORDERED: propofoL 200 MG/20 ML VIAL IV ONE (07:06)
[2022-09-21] MEDS ORDERED: FENTANYL CITR 100 MCG/2 ML ONE (07:06)
[2022-09-21] MEDS ORDERED: ONDANSETRON 4 MG/2 ML VIAL ONE (07:08)
[2022-09-21] MEDS: Ringers Lactate 1,000 ML IV ONE ×2 (07:13→07:21)
[2022-09-21] MEDS ORDERED: EPHEDRINE SULF 50 MG/ML VIAL ONE (07:51)
[2022-09-21 08:11] VITALS: O2SAT 100
[2022-09-21 09:00] VITALS: BP 121/75; TEMP 96.6
--- NOTE | 2022-09-21 09:49 | OP ---
Date of Procedure: 09/21/2022 Surgeon: MARIO SHELDON Primary Care Physician: Unknown. Preoperative Diagnosis: Right closed nasal bone fracture. Postoperative Diagnosis: Right closed nasal bone fracture. Procedure: Close reduction of right nasal bone fracture. Anesthesia: General LMA anesthesia was administered. I infiltrated approximately 8 mL of 1% lidocai ne with 1:100,000 epinephrine into the nasal tissue. Estimated Blood Loss: Less than 1 mL. Findings: Depressed right nasal bone fracture. Complications: None. Disposition: Stable. The patient tolerated the procedure well. Indication For Procedure: The patient is a pleasant 22-year-old female, who approximately 1 week ago tripped and fell and hit the corner of a wall of the right side of her nose resulting in an acute ri ght nasal bone fracture. The patient had significant deviation of the dorsal septum and I could palp ate a depressed fragment noted of the right nasal sidewall. These were indications to bring the camilo ent to the operative suite for the above-mentioned procedure. She understood, all questions were ans wered. Risks versus benefits and complications were explained in detail and a consent form was joselito d, which was placed on the chart. Description Of Procedure: The patient was transferred from the preoperative holding area to the oper ative suite by Department of Anesthesia, placed on the operating table supine, sedated, and an LMA wa s placed. I infiltrated approximately 8 mL of 1% lidocaine with 1:100,000 epinephrine into the nasal soft tissue envelope. Afrin-soaked nasal pledgets were introduced into bilateral nasal cavities. I allowed the epinephrine to work for approximately 10 minutes and then I removed Afrin-soaked nasal p ledgets. I inserted a Temo elevator into bilateral nasal cavities in order to elevate the depressed fragment back into place. I then was able to palpate the nasal bones and see that they were back in its prope r place. I then applied benzoin and Steri-Strips. A thermoplastic splint was placed over the Steri- Strips and taped to the bilateral cheeks. A mustache dressing was placed. She tolerated the procedure well, will be discharged home on [id number] analgesic medication, w ill follow up in 1 week or sooner if needed. SILVIA/CHRISTIE Voice ID: [id number] Report ID: [id number]
== END 2022-09-21 09:10 | disposition home or self-care (01) ==
LOC: OR 06:42
PROVIDERS: ATTEND Otolaryngology Facial Plastic Surgery
PROC: 0NSBXZZ Reposition Nasal Bone, External Approach (ICD-10-PCS; principal; 2022-09-21 07:30)
DX: S02.2XXA Fracture of nasal bones, initial encounter for closed fracture (principal); X58.XXXA Exposure to other specified factors, initial encounter
CPT/HCPCS: 81025; J0690; J1100; J2001; J2250; J2405; J2704; J3010; J7120